=== PATIENT | male | born 1985 | race Caucasian/White ===

== ENCOUNTER 2024-06-23 08:43 | Emergency (ER) | payer OTHER, SELFPAY ==
[2024-06-23 08:44] VITALS: BP 142/90; PULSE 63; RESP 19; TEMP 36.2; O2SAT 100; BMI 27.8
--- NOTE | 2024-06-23 08:59 | EX.ED.VIS.HA ---
HPI History of Present Illness Chief Complaint: Headache Informant: patient Onset/Context/Timing Onset: Today Context: Gradual Timing: Continuous Quality -Headache: Positive for Similar Prior Headaches Location: Generalized Worsened by: Bright lights Relieved by: Nothing Associated Symptoms/Injury Associated Symptoms: Positive for Nausea, Tingling, Blurred Vision and Photophobia; Negative for Fever, Vomiting, Sore Throat, Sinus Pressure, Numbness, Preceding Aura or Visual Loss Injury - ARROYO: Negative for Direct Trauma Narrative Narrative: With a headache that began today. Patient states he woke up with the pain today. Patient states it has been getting progressively worse since he woke up. Patient describes it as tightness and pressure. Patient states it is diffuse across his entire head. Patient states it is worse with lights. Patient admits to some nausea but denies any vomiting. Patient admits to some mild tingling into his feet bilaterally. Patient admits to some blurry vision. Patient states he has a history of migraine headaches when he was a teenager and into his early 20s. Patient states he has not had a migraine headache for approximately 20 years. Patient states this headache does feel somewhat similar to the migraine she had 20 years ago. Patient states his pain does radiate into his neck. Patient denies any fevers but admits to some subjective chills. Patient states she went to the urgent care yesterday for poison demarcus. Patient states he was given a prescription for prednisone. Patient states he started it last night. Patient states his headache began earlier this morning. Patient states he went back to the urgent care today to see if it was an allergic reaction to the prednisone. Patient states he was then referred to the emergency department. [facility] Medical History (Updated 06/23/24 @ 12:[address] Charly Kent DO) Hx of migraine headaches Home Medications ?Medication ?Instructions ?Recorded ?Last Taken ?Type albuterol sulfate 90 mcg/actuation 2 puff inhalation Q6H PRN PRN 06/23/24 Unknown History aerosol inhaler wheezing prednisone 10 mg tablet PO 06/23/24 Unknown History triamcinolone acetonide 0.1 % 1 applic topical TID 06/23/24 Unknown History topical cream Allergy/AdvReac Type Severity Reaction Status Date / Time No Known Allergies Allergy Verified 06/23/24 08:53 Surgical History (Updated 06/23/24 @ 09:[address] Charly Kent DO) Hx of vasectomy Hx of LASIK Social History Smoking Status: Never smoker ROS ROS ED Constitutional Constitutional ED: Reports chills and subjective; Denies fever(s) Eyes Eyes: Reports blurry vision; Denies diplopia ENT ENT ED: Denies rhinorrhea or sore throat Cardiovascular Cardiovascular: Denies chest pain or palpitations Respiratory/Chest Respiratory/Chest: Denies cough or dyspnea Gastrointestinal Gastrointestinal: Reports nausea; Denies vomiting Genitourinary Genitourinary ED: Reports dysuria; Denies hematuria Musculoskeletal Musculoskeletal: Denies back pain or neck pain Integumentary Reports rash; Denies abscess Neurologic Neurologic: Reports headache(s); Denies weakness Allergic/Immunologic Allergic/Immunologic ED: Denies mouth swelling or urticaria EXAM Physical Exam Const Vital Signs: 06/23/24 08:44 06/23/24 10:43 06/23/24 12:00 Temperature 97.2 F L Temperature Source Temporal Pulse Rate 63 68 68 Respiratory Rate 19 H 17 16 Blood Pressure 142/90 H 126/85 H 122/78 H Blood Pressure Mean 107 98 92 Pulse Ox 100 99 97 Oxygen Delivery Method Room Air Room Air Room Air Positive well nourished and well developed General Appearance ED: well developed and NAD HEENT Reports normocephalic and moist mucous membranes temporal artery tenderness right Neck supple and no JVD Resp normal respiratory effort and clear to auscultation bilaterally Cardio regular rate and regular rhythm GI non-tender and non-distended Palpation: soft Extremity normal to inspection and full ROM Neuro oriented x3, CN's II-XII intact bilaterally and no sensory deficits noted [place] Coma Scale: document GCS findings Spontaneous Obeys Commands Oriented 15 Sensorium / Orientation: awake and alert Speech: speech normal Motor Exam: strength 5/5 throughout Psych mental status grossly normal MDM MDM MDM Narrative Medical decision making narrative: Differential diagnosis includes migraine headache, temporal arteritis, subarachnoid hemorrhage, urinary tract infection, viral illness, and medication side effect. CT scan of the brain will be obtained to assess for intracranial bleeding. CBC will be obtained to assess for leukocytosis and anemia. Basic metabolic profile will be obtained to assess for renal function and electrolyte abnormality. Sed rate will be obtained to assess for temporal arteritis. Urinalysis will be obtained to assess for urinary tract infection. COVID-19, influenza, and RSV PCR will be obtained to assess for viral illness. Lab Data Attestation: I reviewed the patient's lab results. Lab results narrative: CBC was reviewed. There is a mild leukocytosis of 11.9. Basic metabolic profile was reviewed. And was within normal limits. Sed rate was reviewed and was less than 1. Urinalysis was reviewed. There is no evidence of urinary tract infection or hematuria. Labs: Laboratory Results - last 24 hr 06/23/24 06/23/24 09:47 10:12 WBC 11.9 H RBC 5.56 Hgb 15.4 Hct 47.2 MCV 84.9 MCH 27.7 MCHC 32.6 RDW Std Deviation 40.8 RDW Coeff of Sherine 13.2 Plt Count 287 MPV 9.6 Immature Gran % (Auto) 0.600 Neut % (Auto) 72.9 H Lymph % (Auto) 18.0 L [place] % (Auto) 6.4 Eos % (Auto) 1.8 Baso % (Auto) 0.3 Absolute Neuts (auto) 8.7 H Absolute Lymphs (auto) 2.15 Nucleated RBC % 0 ESR < 1 Sodium 136 Potassium 3.3 L Chloride 107 Carbon Dioxide 22.0 Anion Gap 7 BUN 16 Creatinine 1.13 Estim Creat Clear Calc 103.05 Est GFR (MDRD) Af Amer 93 Est GFR (MDRD) Non-Af 77 BUN/Creatinine Ratio 14.2 Glucose 134 H Calcium 9.3 Urine Color Yellow Urine Clarity Clear Urine pH 6.0 Ur Specific [place] 1.020 Urine Protein 30 H Urine Glucose (UA) Normal Urine Ketones 5 H Urine Occult Blood 10 H Urine Nitrite Negative Urine Bilirubin Negative Urine Urobilinogen Normal Ur Leukocyte Esterase Negative Urine RBC 0 SEEN Urine WBC 0-5 SEEN Ur Squamous Epith Cells 0-5 SEEN Urine Bacteria 2+ Urine Mucus 2+ Radiography Diagnostic Testing: Clinical Impression(s) from Imaging Studies Brain CT 06/23/24 09:27 IMPRESSION: No acute intracranial process identified. Electronically Signed: Uyen Smith MD at 10:16 EDT , CT scan of the brain was obtained. There is no acute intracranial abnormality. This was interpreted by the radiologist and was also independently reviewed by myself. Treatment and Re-Evaluation Narrative: Patient was given IV fluids, Reglan, and Benadryl. Patient felt better on reevaluation. Patient was advised of his findings. Patient was instructed to rest in a dark quiet room. Patient was instructed to stop the oral prednisone. Patient was instructed to continue the steroid cream. Patient was instructed to follow-up with his primary care physician in 5 to 7 days. Patient was instructed return if worse in any way. Patient understood and was agreeable with the plan. All questions were answered. Discharge Plan Triage Chief Complaint: Headache ED Provider: Charly Kent Dx/Rx/DC Orders Clinical Impression: Headache, migraine, Rhus dermatitis Instructions: ED, Migraine (Classical) Prescriptions: No Action prednisone 10 mg tablet PO triamcinolone acetonide 0.1 % cream 1 applic topical TID albuterol sulfate 90 mcg/actuation HFA aerosol inhaler 2 puff INHALATION Q6H PRN PRN (Reason: wheezing) Primary Care Provider: Jerardo Harris Referrals: Jerardo Harris DO [Primary Care Provider] - 5-7 Days NOT,DEFINED [Non-Staff] - Print Language: [place] Disposition Disposition: Home, Self Care
--- NOTE | 2024-06-23 09:27 | CT_ITS ---
HISTORY: Headache. TECHNIQUE: Multiple axial images were obtained of the head without intravenous contrast. A radiation dose optimization technique was used for this scan. 250 images. COMPARISON: None. FINDINGS: BRAIN PARENCHYMA: No significant attenuation abnormality. No acute intra-axial hemorrhage. CSF SPACES: Cerebral ventricles, cortical sulci, and other extra-axial CSF spaces within normal limits in size for age. No midline shift or other significant mass effect. No acute extra-axial hemorrhage. OTHER: Intact calvarium. No significant air fluid levels in the paranasal sinuses or mastoid air cells. Unremarkable orbits. CT/Brain/Head without Contrast IMPRESSION: No acute intracranial process identified. Electronically Signed: Uyen Smith MD at 10:16 EDT ,
[2024-06-23] MEDS: 0.9% Normal Saline (1000mL) 1,000 ML 999 ML IV (09:42)
[2024-06-23] MEDS: DiphenhydrAMINE 50 MG/ML Syringe 25 MG IV (09:42)
[2024-06-23] MEDS: Metoclopramide 10 MG/2 ML Vial IV (09:43)
[2024-06-23 10:07] LABS: Anion Gap 7 (5-15); BUN 16 mg/dL (7-18); BUN/Creat Ratio 14.2 RATIO (10-20); Calcium,Total 9.3 mg/dL (8.5-10.1); Chloride 107 mmol/L (98-107); Creatinine, Serum 1.13 mg/dL (0.70-1.30); EST Glomerular Filtration Rate 77 mL/min (>60); Est Glom Filt Rate - Afr Amer 93 mL/min (>60); Estimated Creatinine Clearance 103.05 ml/min; Glucose 134 mg/dL (74-106); Potassium 3.3 mmol/L (3.5-5.1); Sodium Level 136 mmol/L (136-145)
[2024-06-23 10:15] LABS: Red Blood Cells-Urine 0 SEEN /hpf (0-5)
[2024-06-23 10:20] LABS: Color, Urine Yellow (Yellow); Glucose, Dipstick Normal (Normal); Ketone-Dipstick 5 mg/dl (Negative); Leukocyte Esterase-Dipstick Negative /ul (Negative); Nitrite-Dipstick Negative (Negative); Occult Blood-Urine 10 /ul (Negative); Protein-Dipstick 30 mg/dl (Negative); Urine Bilirubin Dipstick Negative (Negative); Urine Clarity Clear (Clear); Urine Urobilinogen Normal (Normal)
[2024-06-23 10:23] LABS: Erythrocyte Sedimentation Rate < 1 mm/hr (0-20)
[2024-06-23 10:24] LABS: Absolute Lymphocyte Count 2.15 X10^3/uL (0.83-4.51); Absolute Neutrophil Count 8.7 X10^3/uL (2.0-7.7); Basophil# 0.04 X10^3/uL; Basophil% 0.3 % (0-1); Eosinophil# 0.21 X10^3/uL; Eosinophils% 1.8 % (0-5); Hematocrit 47.2 % (40-54); Hemoglobin 15.4 g/dL (13.0-16.5); Lymphocyte # 2.15 X10^3/ul (0.83-4.51); Mean Corp Hgb Conc 32.6 g/dL (32-36); Mean Corpuscular Hgb 27.7 pg (27.0-32.0); Mean Corpuscular Volume 84.9 fL (80-94); Mean Platelet Vol. 9.6 fl (6.2-12.0); Monocyte# 0.77 X10^3/uL; Monocyte% 6.4 % (0-10); NRBC Flagged by Analyzer 0 % (0-5); Neutrophil % 72.9 % (47-70); Platelet Count 287 K/mm3 (150-450); RBC Distribution Width CV 13.2 % (11.6-14.6); RBC Distribution Width SD 40.8 fl (35.1-43.9); Red Blood Count 5.56 M/mm3 (4.6-6.2); White Blood Count 11.9 K/mm3 (4.4-11.0)
[2024-06-23 10:30] LABS: Bacteria 2+ /hpf (None Seen); Mucous, Urine 2+ /hpf (<or=2+); Squamous Epithelial Cells - UA 0-5 SEEN /hpf (0-5); White Blood Cells 0-5 SEEN /hpf (0-5)
[2024-06-23 10:43] VITALS: BP 126/85; PULSE 68; RESP 17; O2SAT 99
[2024-06-23 12:00] VITALS: BP 122/78; PULSE 68; RESP 16; O2SAT 97
[2024-06-23 12:40] VITALS: BP 113/76; PULSE 72; RESP 16; TEMP 36.6; O2SAT 100
== END 2024-06-23 12:59 | disposition home or self-care (01) ==
PROVIDERS: Emergency Provider Emergency Medicine; PCP Family Medicine; Visit Provider Emergency Medicine
DX: G43.909 Migraine, unspecified, not intractable, without status migrainosus (principal); L30.8 Other specified dermatitis
CPT/HCPCS: 70450; 80048; 81001; 85025; 85652; 96361; 96374; 96375; 99283; J7030; A4216

== ENCOUNTER → 2025-09-03 | Outpatient (CLI) | payer OTHER, SELFPAY ==
--- NOTE | 2025-09-03 10:10 | RAD_ITS ---
PROCEDURE: ESOPHAGUS DUAL CONTRAST 09/03/2025 REASON FOR EXAM: DYSPHAGIA TECHNIQUE: Procedure Code: RADESOD Modality: RF Procedure: Single and double contrast esophagram. FLUOROSCOPIC TIME: 1 minute 56 seconds. FLUOROGRAPHIC IMAGES: Numerous. Dose: DAP 56.9 cGy-cm2. COMPARISON: None. FINDINGS: A normal swallowing mechanism was seen, upon limited visualization. No diverticulum was identified. Motility: Normal esophageal peristalsis. Esophagus: Normal esophageal contour. No evidence of mass ulceration or stricture. GE Junction: Unremarkable. Prompt passage of the 13 mm barium tablet into the stomach was seen. Reflux: During the limited time of imaging, a small amount of gastroesophageal reflux was seen. Limited imaging of the stomach and duodenum shows no abnormality. RAD/Esophagus Dual Contrast IMPRESSION: Small amount of gastroesophageal reflux seen during the time of imaging. Reading Location: [place] [id number]
== END | disposition home or self-care (01) ==
LOC: RAD 09:58
PROVIDERS: PCP Family Medicine; Referring Provider Family Medicine; Visit Provider Family Medicine
DX: R13.10 Dysphagia, unspecified (principal)
CPT/HCPCS: 74221